=== PATIENT | male | born 2000 | race Caucasian/White ===

== ENCOUNTER 2018-07-27 17:59 | Emergency (ER) | payer OTHER, SELFPAY ==
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
== END 2018-07-27 19:13 | disposition home or self-care (01) ==
LOC: ERS 17:59
DX: S16.1XXA Strain of muscle, fascia and tendon at neck level, initial encounter (principal); V43.52XA Car driver injured in collision with other type car in traffic accident, initial encounter
CPT/HCPCS: 72125